=== PATIENT | male | born 1985 | race American Indian/Alaskan Native ===

== ENCOUNTER 2017-06-25 18:37 | Emergency (ER) | payer SELFPAY ==
[2017-06-25 18:44] VITALS: BP 148/102
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
[2017-06-25] MEDS ORDERED: TORADOL IM ONE (18:58)
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
== END 2017-06-25 20:10 | disposition home or self-care (01) ==
LOC: ED 18:37
DX: S83.412A Sprain of medial collateral ligament of left knee, initial encounter (principal); M25.512 Pain in left shoulder; Z88.0 Allergy status to penicillin; V87.7XXA Person injured in collision between other specified motor vehicles (traffic), initial encounter; Y93.89 Activity, other specified; Y99.8 Other external cause status; Y92.410 Unspecified street and highway as the place of occurrence of the external cause
CPT/HCPCS: 73030; 73562; 96372; 99283; J1885

== ENCOUNTER 2017-11-04 10:51 | Day surgery (SDC) | payer OTHER ==
[~2017-11-04 10:51] MED LIST: CLEOCIN 900 MG/50 mL 900 MG/50 ML BAG IV SCH
[2017-11-04] MEDS ORDERED: PERCOCET 5/325 PO PRN (12:18)
[2017-11-04] MEDS ORDERED: TYLENOL PO PRN (12:18)
[2017-11-04] MEDS ORDERED: ZOFRAN IV PRN (12:18)
--- NOTE | 2017-11-04 12:24 | Anesthesia Consultation ---
Anesthesia Consult and Med Hx Date of service: 11/04/17 - Airway Anesthetic Teeth Evaluation: Good ROM Head & Neck: Adequate Mental/Hyoid Distance: Adequate Mallampati Class: Class II Intubation Access Assessment: Probably Good - Pulmonary Exam CTA: Yes - Cardiac Exam Cardiac Exam: RRR - Pre-Operative Health Status ASA Pre-Surgery Classification: ASA2 (Notes indicate Guillian-Clayton) - Pulmonary Hx Smoking: No Hx Sleep Apnea: No (MARY PRE SCREEN LOW RISK.) - Cardiovascular System Hx Hypertension: No - Other Systems Hx Cancer: No
--- NOTE | 2017-11-04 12:26 | Anesthesia Day of Surgery ---
Anesthesia Day of Surgery - Day of Surgery Patient Examined: Yes Patient H&P Reviewed: Yes Patient is NPO: Yes
[2017-11-04] MEDS ORDERED: NEURONTIN PO NR (13:00)
[2017-11-04] MEDS ORDERED: VERSED IV NR (13:00)
[2017-11-04] MEDS ORDERED: LACTATED RINGERS 1,000 ML IV SCH (13:00)
[2017-11-04] MEDS ORDERED: DIPRIVAN 10 MG/ML IV ONE (13:55)
[2017-11-04] MEDS ORDERED: XYLOCAINE 1% 20 mL ONE (14:30)
[2017-11-04] MEDS ORDERED: MARCAINE-EPI 0.25%-1:200,000 INFILTRATI ONE ×2 (14:31→14:55)
[2017-11-04] MEDS ORDERED: ADRENALIN ONE (14:31)
[2017-11-04] MEDS ORDERED: SUBLIMAZE ONE (14:48)
[2017-11-04] MEDS ORDERED: ADRENALIN IR ONE (14:55)
[2017-11-04] MEDS ORDERED: NACL 0.9% IR ONE (14:55)
[2017-11-04] MEDS ORDERED: XYLOCAINE 1% 20 mL INFILTRATI ONE (14:55)
[2017-11-04] MEDS ORDERED: TORADOL ONE (15:44)
[2017-11-04] MEDS ORDERED: ZOFRAN ONE (15:44)
[2017-11-04] MEDS ORDERED: XYLOCAINE MPF 2% ONE (15:44)
[2017-11-04] MEDS ORDERED: DILAUDID ONE (15:52)
--- NOTE | 2017-11-04 15:55 | Short Stay Summary ---
Short Stay Documentation Date of service: 11/04/17 - History H&P: obtained from office - Allergies and Medications Current Medications: Allergies Penicillins Allergy (Verified 10/24/17 13:25) Anaphylaxis SEAFOOD Allergy (Uncoded 10/24/17 13:25) Anaphylaxis FLU SHOT Adverse Reaction (Uncoded 10/24/17 13:31) HX GUILLIAN BARRE SYNDROME Home Medications Medication Instructions Recorded Confirmed Last Taken Type Ibuprofen [Motrin] 800 mg PO Q8HR PRN #20 tablet 06/25/17 11/04/17 07/07/17 Rx traMADol [Ultram] 50 mg PO Q6HR PRN #12 tablet 06/25/17 11/04/17 07/07/17 Rx Active Medications Acetaminophen (Tylenol) 650 mg PO ONCE PRN PRN Reason: Pain, Mild (1-3) Celecoxib (Celebrex) 200 mg PO PREOP NR Stop: 11/04/17 23:59 Last Admin: 11/04/17 12:53 Dose: 200 mg Gabapentin (Neurontin) 300 mg PO PREOP NR Stop: 11/04/17 23:59 Last Admin: 11/04/17 12:53 Dose: 300 mg Hydromorphone HCl (Dilaudid) 0.5 mg IV Q10MIN PRN PRN Reason: Pain , Severe (7-10) Stop: 11/04/17 23:59 Clindamycin HCl (Cleocin 900 Mg/50 Ml) 900 mg in 50 mls @ 100 mls/hr IV PREOP JUAN A; Protocol Lactated Ringer's (Lactated Ringers) 1,000 mls @ 100 mls/hr IV DIRECT JUAN A Last Admin: 11/04/17 12:55 Dose: 100 mls/hr Midazolam HCl (Versed) 2 mg IV PREOP NR Stop: 11/04/17 23:59 Ondansetron HCl (Zofran) 4 mg IV ONCE PRN PRN Reason: Nausea And Vomiting Oxycodone/Acetaminophen (Percocet 5/325) 1 tab PO ONCE PRN PRN Reason: Pain, Moderate (4-6) - Brief post op/procedure progress note Date of procedure: 11/04/17 Pre-op diagnosis: persistent left knee pain, medial meniscus tear, Post-op diagnosis: other (persistent left knee pain, discoid lateral meniscus, articular cartilage wear of medial femoral condyle, loose bodies) Procedure: left knee arthroscopy abrasion chondroplasty medial femoral condyle, removal of loose bodies Anesthesia: GETA Findings: as above Surgeon: LUCERO GARDNER Estimated blood loss: minimal Pathology: none Condition: stable - Hospital course Hospital course: no perioperative complications - Disposition Condition at discharge: Good Short Stay Discharge Plan Follow up with: AURELIANO MELTON [Other] - 7 Days
[2017-11-04] MEDS: DILAUDID IV PRN ×2 (16:21→16:31)
[2017-11-04 17:19] VITALS: BP 143/85
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
== END 2017-11-04 10:52 | disposition home or self-care (01) ==
LOC: OR 10:51
PROVIDERS: ATTEND Orthopaedic Surgery
DX: M94.8X6 Other specified disorders of cartilage, lower leg (principal); M23.42 Loose body in knee, left knee; Z88.7 Allergy status to serum and vaccine; Z88.0 Allergy status to penicillin; Z91.013 Allergy to seafood; Z98.890 Other specified postprocedural states
CPT/HCPCS: 29879; A4217; J0171; J1170; J1885; J2405; J2704; J3010; J7120; J2250